=== PATIENT | male | born 1970 ===

== ENCOUNTER 2022-05-18 05:15 | Day surgery (SDC) | payer OTHER ==
[~2022-05-18] VITALS: Ht 167.6 cm; Wt 88.5 kg
[~2022-05-18 05:15] MED LIST: BACLOFEN20 MG PO; SULINDAC200 MG PO; SYNTHROID50 MCG PO; ZESTRIL20 MG PO
[2022-05-18] MEDS ORDERED: PERCOCET 5-3251 EACH PO (09:17)
[2022-05-18] MEDS ORDERED: MIRALAX17 GM PO (09:19)
== END 2022-05-18 15:15 | disposition home or self-care (01) ==
LOC: CIR.AMB 05:15
PROVIDERS: ATTEND Surgery
DX: K60.3 Anal fistula (principal); Z20.822 Contact with and (suspected) exposure to COVID-19; I10 Essential (primary) hypertension; E03.9 Hypothyroidism, unspecified

== ENCOUNTER 2022-09-28 05:22 | Day surgery (SDC) | payer OTHER ==
[~2022-09-28] VITALS: Ht 167.6 cm; Wt 83.9 kg
[~2022-09-28 05:22] MED LIST changes: +MIRALAX17 GM PO; +PERCOCET 5-3251 EACH PO
[2022-09-28] MEDS ORDERED: PERCOCET 5-3251 EACH PO (10:55)
== END 2022-09-28 17:00 | disposition home or self-care (01) ==
LOC: CIR.AMB 05:22
PROVIDERS: ATTEND Surgery
DX: K60.3 Anal fistula (principal); Z20.822 Contact with and (suspected) exposure to COVID-19; K62.89 Other specified diseases of anus and rectum; I10 Essential (primary) hypertension